=== PATIENT | female | born 1970 | race Caucasian/White ===

== ENCOUNTER 2022-12-26 06:53 | Outpatient (CLI) | payer OTHER | END 2022-12-26 07:00 | disposition home or self-care (01) | LOC: MRI 06:53 | DX: M25.551 Pain in right hip (principal); M25.552 Pain in left hip; M21.41 Flat foot [pes planus] (acquired), right foot; M25.561 Pain in right knee; M25.562 Pain in left knee; N63.11 Unspecified lump in the right breast, upper outer quadrant; S83.200A Bucket-handle tear of unspecified meniscus, current injury, right knee, initial encounter; R10.0 Acute abdomen; E11.22 Type 2 diabetes mellitus with diabetic chronic kidney disease; N18.2 Chronic kidney disease, stage 2 (mild); Z21 Asymptomatic human immunodeficiency virus [HIV] infection status; E04.1 Nontoxic single thyroid nodule | CPT/HCPCS: 73521; 73565; 73630; 73721; 74177; 76536; 76641; 76770; 77066; Q9965 ==

== ENCOUNTER 2023-02-09 07:52 | Outpatient (CLI) | payer OTHER | END 2023-02-09 07:54 | disposition home or self-care (01) | LOC: SONOGRAMA 07:52 | PROVIDERS: ATTEND Pathology Anatomic Pathology & Clinical Pathology | DX: D34 Benign neoplasm of thyroid gland (principal); E04.9 Nontoxic goiter, unspecified ==

== ENCOUNTER 2025-03-05 06:00 | Day surgery (SDC) | payer OTHER ==
[2025-02-27 12:21] LABS: INR 0.98; PARTIAL THROMBOPLASTIN TIME 26.8 SECONDS (22.0-34.0); PROTHROMBIN TIME 10.7 SECONDS (9.0-11.5)
[~2025-03-05 06:00] MED LIST: CRESTOR40 MG; DULOXETINE HCL40 MG; KLONOPIN; LANTUS SOL100 UNIT/1; MOUNJARO12.5 MG/0. SQ; NEURONTIN800 MG PO; PRECOSE100 MG PO; SINGULAIR10 MG PO; TOPROL XL50 M1 PO; XIGDUO XR 10 M1 EAC1 PO; ZETIA10 MG PO
[2025-03-05] MEDS ORDERED: CEFTRIAXONE SODIUM 2,000 MG VIAL ONE (08:14)
[2025-03-05] MEDS ORDERED: METRONIDAZOLE/SODIUM CHLORIDE 500 MG/100 ML PIGGYBACK IV ONE (08:15)
[2025-03-05] MEDS ORDERED: POVIDONE-IODINE 118 ML BOTT TOP ONE (09:03)
[2025-03-05] MEDS ORDERED: BUPIVACAINE HCL/MPF 0.5% 30ML VIAL ONE (09:03)
[2025-03-05] MEDS ORDERED: DIBUCAINE 30 GM TUBE ONE (09:03)
[2025-03-05] MEDS ORDERED: LIDOCAINE HCL 1%/EPINEPHRINE 20ML VIAL IJ ONE (09:03)
[2025-03-05] MEDS ORDERED: HEMOSTATIC MATRIX 1 KIT KIT TOP ONE (09:27)
== END 2025-03-05 16:45 | disposition home or self-care (01) ==
LOC: CIR.AMB 06:00
PROVIDERS: ATTEND Colon & Rectal Surgery
DX: D12.8 Benign neoplasm of rectum (principal); K64.4 Residual hemorrhoidal skin tags; A63.0 Anogenital (venereal) warts; Z88.0 Allergy status to penicillin